=== PATIENT | male | born 1995 | race Caucasian/White ===

== ENCOUNTER 2022-01-24 19:12 | Emergency (ER) | payer OTHER ==
[~2022-01-24] VITALS: Ht 167.6 cm; Wt 65.9 kg
[2022-01-24 19:14] VITALS: BP 131/98
[2022-01-24] MEDS ORDERED: SODIUM CHLORIDE 0.9% 1,000 ML IV ONE (21:00)
== END 2022-01-24 22:19 | disposition home or self-care (01) ==
LOC: EMS 19:21
DX: L40.9 Psoriasis, unspecified (principal)
CPT/HCPCS: 96360; 99283; J7030

== ENCOUNTER 2022-02-05 10:43 | Emergency (ER) | payer OTHER ==
[~2022-02-05] VITALS: Ht 167.6 cm; Wt 72.3 kg
[2022-02-05 10:47] VITALS: BP 137/72
[2022-02-05] MEDS ORDERED: [UNRECOGNIZED DRUG - CODE] PO (12:09)
[2022-02-05] MEDS ORDERED: DEXAMETHASONE SOD PHOS 4 MG/ML 5 ML VIAL IM ONE (12:15)
== END 2022-02-05 12:41 | disposition home or self-care (01) ==
LOC: EMS 10:45
DX: L30.8 Other specified dermatitis (principal); L40.9 Psoriasis, unspecified
CPT/HCPCS: 96372; 99283; J1100

== ENCOUNTER 2022-02-16 01:56 | Emergency (ER) | payer OTHER ==
[~2022-02-16] VITALS: Ht 167.6 cm; Wt 72.8 kg
[~2022-02-16 01:56] MED LIST: [UNRECOGNIZED DRUG - CODE] PO
[2022-02-16] MEDS ORDERED: 0.9% SODIUM CHLORIDE 10 ML SYRINGE IVP PRN (02:30)
[2022-02-16] MEDS ORDERED: ACETAMINOPHEN 500 MG TABLET PO ONE (02:30)
[2022-02-16] MEDS ORDERED: SODIUM CHLORIDE 0.9% 2,200 ML IV ONE (02:30)
[2022-02-16] MEDS ORDERED: VANCOMYCIN 1GM/WATER(PEG/NADA) 200 ML IV ONE (02:30)
[2022-02-16 02:44] LABS: COVID AG,FIA SOURCE NASAL SWAB
[2022-02-16 02:48] LABS: BASOPHILS % (AUTO) 1.1 % (0.0-2.0); EOSINOPHILS % (AUTO) 5.7 % (1.0-6.0); HEMATOCRIT 45.5 % (41-53); HEMOGLOBIN 15.6 g/dL (13.5-17.5); LYMPHOCYTES # (AUTO) 1.1 K/uL (1.0-4.8); LYMPHOCYTES % (AUTO) 9.1 % (22.0-44.0); MEAN CORPUSCULAR HEMOGLOBIN 28.9 pg (26.0-34.0); MEAN CORPUSCULAR HGB CONC 34.3 G/dL (31.0-37.0); MEAN CORPUSCULAR VOLUME 85 fL (80-100); MONOCYTES # (AUTO) 1.3 K/uL (0.1-1.0); MONOCYTES % (AUTO) 10.5 % (2.0-9.0); NEUTROPHILS # (AUTO) 8.9 K/uL (1.8-7.7); NEUTROPHILS % (AUTO) 73.6 % (40.0-70.0); PLATELET COUNT (AUTO) 299 K/uL (150-450); RED BLOOD CELL COUNT(AUTO) 5.38 MIL/uL (4.50-5.90); RED CELL DISTRIBUTION WIDTH 14.8 % (11.5-14.5)
[2022-02-16 02:54] LABS: APPEARANCE,URINE CLEAR (CLEAR); BILIRUBIN,URINE NEGATIVE (NEGATIVE); GLUCOSE, URINE (UA) NEGATIVE (NEGATIVE); KETONES,URINE =>150 mg/dL (NEGATIVE); LEUKOCYTE ESTERASE ,URINE NEGATIVE (NEGATIVE); NITRATE,URINE NEGATIVE (NEGATIVE); OCCULT BLOOD,URINE NEGATIVE (NEGATIVE); PROTEIN,URINE TRACE mg/dL (NEGATIVE); SPECIFIC GRAVITIY, URINE 1.028 (1.003-1.030)
[2022-02-16 02:58] LABS: CHLORIDE 100 mmol/L (98-107)
[2022-02-16 03:00] LABS: INR 0.9 (0.9-1.1); PROTHROMBIN TIME 10.1 SEC (9.4-11.6)
[2022-02-16 03:07] LABS: INFLUENZA TYPE A NEGATIVE FOR TYPE A (NEGATIVE); INFLUENZA TYPE B NEGATIVE FOR TYPE B (NEGATIVE)
[2022-02-16 03:07] LABS: ANION GAP 15 mmol/L (8-16); CALCIUM, TOTAL 8.7 mg/dL (8.8-10.5); CARBON DIOXIDE 24 mmol/L (22-29); CREATININE 0.89 mg/dL (0.60-1.30); GLOMERULAR FILTR. RATE CALC > 60 mL/min (>60); GLUCOSE,RANDOM 90 mg/dL (70-110); POTASSIUM 3.5 mmol/L (3.5-5.1); SODIUM SERUM 139 mmol/L (136-145); UREA NITROGEN, BLOOD 10 mg/dL (7-18)
[2022-02-16 03:12] LABS: LACTIC ACID 1.1 mmol/L (0.4-2.0)
[2022-02-16 03:33] LABS: ALANINE AMINOTRANSFERASE 38 U/L (12-78); ALBUMIN 3.2 g/dL (3.4-5.0); ALKALINE PHOSPHATASE 86 U/L (46-116); ASPARTATE AMINOTRANSFERASE 30 U/L (15-37); BILIRUBIN,TOTAL 0.4 mg/dL (0.1-1.0); C-REACTIVE PROTEIN QUANT 8.68 mg/dL (0.00-0.30); CREATINE KINASE, TOTAL ONLY 82 U/L (39-308); TOTAL PROTEIN, SERUM 7.4 g/dL (6.4-8.2)
[2022-02-16 03:59] LABS: ERYTHROCYTE SEDIMENTATION RATE 17 MM/HR (0-15)
[2022-02-16 08:00] VITALS: BP 113/67
== END 2022-02-16 08:59 | disposition short-term general hospital (02) ==
LOC: EMS 02:01
DX: L03.211 Cellulitis of face (principal); L03.221 Cellulitis of neck; L40.9 Psoriasis, unspecified; R50.9 Fever, unspecified; R00.0 Tachycardia, unspecified; R23.4 Changes in skin texture; Z20.822 Contact with and (suspected) exposure to COVID-19
CPT/HCPCS: 36415; 71045; 80053; 81003; 82550; 83605; 84145; 85025; 85610; 85651; 86140; 87040; 87426; 87804; 93005; 96365; 96366; 99291; J7030; Q9967